=== PATIENT | male | born 1970 | race Caucasian/White ===

== ENCOUNTER 2017-08-04 13:57 | Inpatient (IN) ==
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
[2017-08-04 14:58] LABS: Basophils % 0.5 %; Eosinophils # 0.3 K/mcL (0.0-0.6); Eosinophils % 3.7 %; Hematocrit 41.4 % (37.5-50.1); Hemoglobin 13.7 g/dL (12.9-16.9); Immature Granulocytes % 0.7 % (0-4); Lymphocytes % 27.5 %; Mean Corpuscular HGB Conc 33.1 g/dL (31.6-35.5); Mean Corpuscular Hemoglobin 27.5 pg (28.0-33.3); Mean Platelet Volume 9.5 fL (9.4-12.4); Monocytes # 0.4 K/mcL (0.0-1.3); Monocytes % 5.9 %; Neutrophils # 4.5 K/mcL (1.6-8.9); Platelet Count 204 K/mcL (140-400); Red Blood Count 4.99 M/mcL (4.19-5.50); Red Cell Distribution Width 12.5 % (11.5-14.5); Segmented Neutrophils % 61.7 %
--- NOTE | 2017-08-04 15:01 | Emergency Department Note ---
START Narrative - START START: I examined this patient and my medical decision-making was reviewed with the Resident Physician. I agree with the documented findings, disposition and treatment plan as described except to the extent set forth below. 46-year-old male presents emergency room for left upper quadrant left-sided abdominal pain. States he thinks he may have injured it during a fall on the ice a little over a week or so ago. Still having persistent pain in this area. Denies any hematuria. No blood in the stool. We will obtain a chest x-ray as well as a CT abdomen and pelvis to rule out any splenic injury.
[2017-08-04 15:16] LABS: Alanine Aminotransferase 31 Units/L (7-52); Albumin 4.8 g/dL (3.5-5.7); Albumin/Globulin Ratio 2.2 (1.1-2.2); Alkaline Phosphatase 51 Units/L (34-104); Aspartate Amino Transferase 21 Units/L (13-39); BUN/Creatinine Ratio 16 (6-26); Bilirubin,Direct 0.1 mg/dL (0.0-0.2); Bilirubin,Indirect 0.5 mg/dL (0.0-1.2); Bilirubin,Total 0.6 mg/dL (0.3-1.0); Blood Urea Nitrogen 18 mg/dL (6-20); Calcium 9.9 mg/dL (8.6-10.3); Carbon Dioxide 26 mEq/L (23-29); Chloride 106 mEq/L (98-107); Globulin 2.2 g/dL (2.4-3.5); Glucose 77 mg/dL (70-105); Lipase 25 Units/L (11-82); Osmolality,Calculated 291 (280-300); Potassium 4.1 mEq/L (3.5-5.1); Sodium 140 mEq/L (136-145); eGFR For African Americans > 60 (> 60); eGFR For Non-African Americans > 60 (> 60)
[2017-08-04 16:10] LABS: Bilirubin,Urine Negative (Negative); Blood,Urine Negative (Negative); Clarity,Urine Cloudy (Clear); Color,Urine Yellow (Yellow); Glucose,Urine (UA) Normal (Normal); Ketones,Urine Negative (Negative); Leukocyte Esterase,Urine Negative (Negative); Nitrite,Urine Negative (Negative); Protein,Urine Negative (Neg-Trace); Specific Gravity,Urine 1.023 (1.010-1.025); Urobilinogen,Urine Normal (Normal)
[2017-08-04 16:12] LABS: Bacteria,Urine None Seen per hpf (None-Few); Hyaline Casts,Urine None Seen per lpf (None-Few); Squamous Epithelial Cell,Urine Moderate per lpf (None-Few); WBC,Urine 0-3 per hpf (0-3)
[2017-08-04] MEDS ORDERED: Ondansetron ODT 4 MG TAB.RAPDIS SL PRN (18:50)
[2017-08-04] MEDS ORDERED: NICOTINE POLACRILEX 4 MG PO PRN (19:00)
--- NOTE | 2017-08-04 19:28 | General Surg History&Physical ---
Date of Encounter: 08/04/17 Time of Encounter: 19:19 Assessment and Plan (1) Splenic laceration Current Visit: Yes Status: Acute 46M with grade III splenic laceration with associated hematoma; concern for pseudoaneurysm; Due to the fact that the patient has made it a week without any evidence of hemodynamic issue, even though the concern for extravasation is very low, the concern still stands for the possibility for a pseudoaneurysm still exists. reg diet NPO at midnight, IVF at midnight hold on chemical dvt prophylaxis q6hr h/h IR consult for angio and possible embolization if there is a pseudoaneurysm ( discussed with Dr. Preston of IR) bedrest x 24hrs; up ad aditya after 24hrs or after embolization no acute surgery at present patient will need q3hr vitals, i/o; The assessment and plan as outlined above was discussed with the patient and/ or family members who expressed understanding and agreement. All questions were answered. Qualifiers: Encounter type: initial encounter Qualified Code(s): S36.039A - Unspecified laceration of spleen, initial encounter History of Present Illness Chief complaint: left upper quadrant pain HPI: Mr. Jasmine is a 46 year old male who presents with left upper quadrant pain. The patient states that about 1 week prior he had a mechanical fall and fell down about 3 steps along his left side. He was asymptomatic for the first two days before he began feeling pain. The pain was localized to the LUQ, non radiating, with no associated fevers, chills, nausea, vomiting, chest pain nor shortness of breath. However, due to worsening pain, he came to the ED for further evaluation. CT scan was obtained (reviewed and interpreted by me) revealing a grade III splenic laceration, hematoma and possible pseudoaneurysm. Surgery was consulted for management recommendations. Past Med Surg Social Fam HX - Past Medical History Medical history: no medical history Psychiatric history: no psych history - Past Surgical History Surgical History: no surgical history - Social History Smoking Status: Former smoker Smokeless Tobacco Status: Yes Alcohol use: rarely Drug use: none - Additional Family History Additional family history: non contributory Medications and Allergies Nicotine Polacrilex [Nicotine Lozenge] 4 mg PO Q3H PRN 08/04/16 [History] Ibuprofen [Motrin] 400 mg PO Q6HR 08/04/17 [History] Naproxen Sodium [All Day Pain Relief] 220 mg PO Q12H PRN 08/04/17 [History] 3 Allergy/AdvReac Type Severity Reaction Status Date / Time No Known Allergies Allergy Verified 08/04/17 14:06 Review of Systems All systems PM: A 10-system review of systems was performed and is negative for pertinent findings except as documented above in the HPI. General Surgery Exam Initial Vital Signs Temp Pulse Resp BP Pulse Ox 97.9 F 71 20 111/74 98 08/04/17 14:06 08/04/17 14:06 08/04/17 14:06 08/04/17 14:06 08/04/17 14:06 - General physical appearance well developed, well nourished, no distress - Eyes normal ocular movement - ENT normocephalic - Neck no lymphadectomy - Respiratory normal expansion, normal respiratory effort - Cardiovascular Cardiovascular exam: Present: RRR - Abdomen Abdomen general surgery: Present: soft, tender Abdominal Tenderness: Present: LUQ - Integumentary Integumentary general surgery: Present: warm and dry - Neurologic Present: CN 2-12 grossly intact - Psychiatric Psychiatric general surgery: Present: A&Ox3 Results - Labs 08/04/17 14:43 08/04/17 14:43 Abnormal lab results MCH 27.5 pg (28.0-33.3) L 08/04/17 14:43 Globulin 2.2 g/dL (2.4-3.5) L 08/04/17 14:43 Urine Clarity Cloudy (Clear) A 08/04/17 13:20 Urine Microscopic RBC 3-5 per hpf (0-3) H 08/04/17 13:20 Ur Squamous Epith Cells Moderate per lpf (None-Few) H 08/04/17 13:20 All other labs normal. - Imaging CT scan - abdomen: report reviewed, image reviewed CT scan - pelvis: report reviewed, image reviewed - VTE Reasons for not Prescribing Prophylaxis: Medical contraindication
[2017-08-04 19:59] LABS: Hematocrit 40.4 % (37.5-50.1); Hemoglobin 13.8 g/dL (12.9-16.9)
[2017-08-05] MEDS: D5% in 0.45% NACL w KCl 20 MEQ/1,000 ML MLS IVC SCH ×2 (00:49→10:06)
[2017-08-05] MEDS ORDERED: OXYCODONE Oral CONC 10 MG/0.5 ML ORAL.SYG SL ONE (01:14)
[2017-08-05 04:08] LABS: Hematocrit 41.1 % (37.5-50.1); Hemoglobin 13.6 g/dL (12.9-16.9)
[2017-08-05 07:47] LABS: Hematocrit 41.4 % (37.5-50.1); Hemoglobin 13.6 g/dL (12.9-16.9)
[2017-08-05 08:14] LABS: INR 1.2; Prothrombin Time 13.1 Seconds (9.4-12.1)
[2017-08-05] MEDS ORDERED: 0.9 % Sodium Chloride 500 ML ONE (08:22)
[2017-08-05] MEDS ORDERED: Heparin 1,000 UNITS/500 mL 500 ML ONE (08:22)
[2017-08-05] MEDS ORDERED: *HR* FentaNYL (PF) 100 MCG/2 ML VIAL IVP ONE (08:47)
[2017-08-05] MEDS ORDERED: *HR* Midazolam HCl 2 MG/2 ML VIAL IVP ONE (08:47)
[2017-08-05] MEDS ORDERED: 0.9 % Sodium Chloride 1,000 ML ONE (08:52)
--- NOTE | 2017-08-05 08:52 | Pre-Sedation Evaluation ---
Pre-sedation evaluation - Pre-sedation checklist Date of procedure: 08/05/17 Procedure: Splenic angiogram, embolization Recent Vitals: Last Vital Signs Temp 97.6 F 08/05/17 05:27 Pulse 55 08/05/17 05:27 Resp 13 08/05/17 05:27 BP 101/67 08/05/17 05:27 Pulse Ox 98 08/05/17 05:27 Previous reaction to sedatives/anesthetics: No Dietary Status: NPO 6 hours prior to procedure Airway Assessment: Patient can open mouth completely, TMJ function normal, Micrognathia (under-bite, receding chin) absent, Neck with adequate range of motion Possible difficult airway: No ASA Classification *see protocol: CLASS II-Mild systemic disease Plan of Care: Pt appropriate candidate for procedure/moderate/conscious sedation , Risks/benefits of procedure/sedation discussed w/ patient/family, If not NPO; Risk of intake outweiged by necessity to perform procedure
--- NOTE | 2017-08-05 09:26 | IR Procedure Note ---
Date of procedure: 08/05/17 Consent Obtained: Written consent Timeout: Correct patient and procedure verified, Correct site verified, Time out performed, Skin prep completed Indications: Splenic laceration, pseudoaneurysm Procedure Performed: Splenic angiogram, gelfoam embolization Was there an laboratory assistant present: No Site/Technique: rt femoral access, 5F catheter Results/Findings: pseudoaneurysm seen and embolized Estimated blood loss (cc): 4 Complications: None; Tolerated procedure well Post Procedure Treatment Plan: recovery on the floor Specimen: none
[2017-08-05] MEDS ORDERED: Ondansetron 4 MG/2 ML VIAL ONE (12:08)
[2017-08-05 12:50] LABS: Hematocrit 44.1 % (37.5-50.1); Hemoglobin 14.3 g/dL (12.9-16.9)
--- NOTE | 2017-08-05 13:02 | General Surgery Progress Note ---
Date of Encounter: 08/05/17 Time of Encounter: 13:00 - Assessment and Plan (1) Splenic laceration Current Visit: Yes Status: Acute Qualifiers: Encounter type: initial encounter Qualified Code(s): S36.039A - Unspecified laceration of spleen, initial encounter Subjective Patient reports: no new complaints, feels better Objective Vital Signs - Last 8 Hours Temp Pulse Resp BP Pulse Ox 08/05/17 11:10 18 111/72 95 08/05/17 10:30 68 125/78 99 08/05/17 10:12 18 125/79 96 08/05/17 10:05 97.7 F 58 18 145/77 97 08/05/17 10:00 125/77 08/05/17 09:19 54 16 115/67 97 08/05/17 09:14 58 16 110/63 96 08/05/17 09:10 60 16 138/72 97 08/05/17 09:05 58 16 129/74 97 08/05/17 09:00 75 16 121/72 99 08/05/17 05:27 97.6 F 55 13 101/67 98 Intake and Output 08/04/17 08/05/17 08/05/17 23:59 07:59 15:59 Intake Total 480 / 480 0 / 0 1000 / 1000 Output Total 350 / 350 250 / 250 800 / 800 Balance 130 / 130 -250 / -250 200 / 200 Intake: IV Fluids 1000 / 1000 KCl 20mEq IN D5%-0.45 NACL 20 1000 / 1000 meq In 1,000 ml @ 100 mls/hr IVC .Q10H RADHA Rx#:[id number] Oral 480 / 480 0 / 0 Output: Urine 350 / 350 250 / 250 800 / 800 Other: Meal snack Percent of Meal Consumed 100% # Voids 1 Weight 101.605 kg Blood Glucose* 108 - General physical appearance no distress - Respiratory normal expansion, normal respiratory effort - Cardiovascular Cardiovascular exam: Present: RRR - Abdomen Abdomen: Present: soft, tender Abdominal Tenderness: LUQ - Integumentary no rash - Neurologic CN 2-12 grossly intact - Psychiatric oriented to time, oriented to person, oriented to place - Labs 08/05/17 12:36 08/04/17 14:43 - VTE Reasons for not Prescribing Prophylaxis: Medical contraindication Consult Discharge Plan - Plan Referrals: NONE,PCP [Primary Care Provider] -
--- NOTE | 2017-08-05 13:05 | Discharge Summary ---
Date of Encounter: 08/05/17 Time of Encounter: 13:03 - Discharge Diagnosis (1) Splenic laceration Priority: Primary Status: Acute Comments: grade III splenic lac with hematoma and pseudoaneurysm; Qualifiers: Encounter type: initial encounter Qualified Code(s): S36.039A - Unspecified laceration of spleen, initial encounter - Discharge Medications Home Medications: Nicotine Polacrilex [Nicotine Lozenge] 4 mg PO Q3H PRN 08/04/16 [History] Ibuprofen [Motrin] 400 mg PO Q6HR 08/04/17 [History] Naproxen Sodium [All Day Pain Relief] 220 mg PO Q12H PRN 08/04/17 [History] Allergies/Adverse Reactions: 3 Allergy/AdvReac Type Severity Reaction Status Date / Time No Known Allergies Allergy Verified 08/04/17 14:06 General Surgery Exam Initial Vital Signs Temp Pulse Resp BP Pulse Ox 97.9 F 71 20 111/74 98 08/04/17 14:06 08/04/17 14:06 08/04/17 14:06 08/04/17 14:06 08/04/17 14:06 - General physical appearance no distress - Eyes normal ocular movement - Respiratory normal expansion, normal respiratory effort - Abdomen Abdomen general surgery: Present: soft, tender Abdominal Tenderness: Present: LUQ - Integumentary Integumentary general surgery: Present: warm and dry - Neurologic Present: CN 2-12 grossly intact - Psychiatric Psychiatric general surgery: Present: A&Ox3 Date of admission: 08/04/17 19:00 Primary care physician: PCP NONE Anticipated date of discharge: 08/05/17 - Patient Status Disposition: Home, Self-Care Condition: Fair - Discharge Instructions Follow Up With: NONE,PCP [Primary Care Provider] - Abdiaziz Bass MD [Non-Partnered Physician] - 08/22/17 (follow up with Dr. Bass in his General Surgery clinic) Additional Instructions: NO strenuous, rigorous, or contact type activities; If it looks like fun, sounds like fun, you think it might be fun, if you think that someone else thinks it may be fun, DO NOT participate or engage in such activities If you experience worsening pain, light headedness, dizziness, pass out, become excessively pale, chest pain, significant shortness of breath, please report to the closest urgent care or emergency department RIGHT AWAY for evaluation; if you are experiencing these symptoms and feel as if you want to speak to Dr. Bass or his office first about what is going on, do so ON THE WAY to the emergency department or urgent care center. - Diet and Activity Activity: resume usual activities as tolerated, other Diet: advance to your usual diet - Hospital Course Hospital course: Mr. Jasmine is a 46 year old male admitted 08/05 LUQ found to have grade III splenic lac with hematoma and pseudoaneurysm; admitted for angio and embolization with IR; after embolization, patient met discharge criteria and was discharged home; - Time Spent with Patient Total time spent providing and/or coordinating discharge services: Greater than 30 minutes Labs on day of discharge: Labs from last 24 hours 08/05/17 08/05/17 08/05/17 12:36 07:46 07:03 Hgb 14.3 13.6 Hct 44.1 41.4 PT 13.1 H INR 1.2 POC Glucose 08/05/17 08/05/17 08/04/17 05:23 00:43 19:42 Hgb 13.6 13.8 Hct 41.1 40.4 PT INR POC Glucose 108 H
[2017-08-05 15:30] VITALS: BP 119/71
[2017-08-06] MEDS ORDERED: *HR* Enoxaparin 40 MG/0.4 ML SYRINGE SQ SCH (06:00)
== END 2017-08-05 17:52 | disposition home or self-care (01) | DRG 270 ==
LOC: 3ANU 13:57 → EMEROO 13:57 → 3ANU 19:26
PROVIDERS: ADMIT Surgery; ATTEND Surgery
PROC: IRANGIO (2017-08-05 13:00)